=== PATIENT | female | born 1975 | race Hispanic/Latino ===

== ENCOUNTER 2018-02-14 14:13 | Emergency (ER) | payer BC ==
[2018-02-14] MEDS ORDERED: KETOROLAC 30 MG/ML INJ ONE (16:39)
[2018-02-14] MEDS ORDERED: NA CHLORIDE 0.9% 1,000 ML ONE (16:39)
[2018-02-14] MEDS ORDERED: FENTANYL CITR 100 MCG/2 ML ONE ×2 (16:39→18:26)
[2018-02-14] MEDS ORDERED: ONDANSETRON 4 MG/2 ML VIAL ONE (16:39)
[2018-02-14 17:10] LABS: Absolute Lymphocytes (CBC) 4.8 K/uL (0.7-4.9); Absolute Monocytes 0.4 K/uL (0.1-1.3); Absolute Neutrophil 5.9 K/uL (1.8-8.0); Basophils % 0.5 % (0-1.3); Eosinophils % 1.4 % (0-4.4); Hematocrit 43.6 % (36.0-45.0); Lymphocytes % 42.1 % (15.3-44.8); MCH 30.7 pg (27.0-35.0); MCV 90.4 fL (80-100); MPV 9.1 fL (7.6-11.3); Monocytes % 3.9 % (3.3-12.3); RBC Red Blood Cell Count 4.83 M/uL (3.86-4.86)
[2018-02-14 17:21] LABS: Bicarbonate 27 mEq/L (21-31); Glucose Level 82 mg/dL (65-120); Potassium 3.5 mEq/L (3.6-5.0); Sodium Level 138 mEq/L (135-145)
[2018-02-14 17:24] LABS: ALT/SGPT 23 IU/L (10-60); AST/SGOT 18 IU/L (10-42); Albumin 4.2 g/dL (3.2-5.5); Alkaline Phosphatase 64 IU/L (42-121); BUN Blood Urea Nitrogen 12 mg/dL (6-20); Bilirubin Total 1.2 mg/dL (0.3-1.2); Protein, Total 7.4 g/dL (6.0-8.3)
[2018-02-14 17:41] LABS: Urine Blood NEGATIVE (NEG); Urine Glucose NEGATIVE (NEG); Urine Protein NEGATIVE (NEG); Urine pH 5.5 (5.0-7.0)
--- NOTE | 2018-02-14 18:17 | RAD REPORT ---
EXAM DESCRIPTION: MRI - Brain Wo Cont - 02/14/2018 5:49 pm CLINICAL HISTORY: Headache, weakness, slurred speech COMPARISON: None. TECHNIQUE: Sagittal T1-weighted images were obtained along with axial PD, heavily T2-weighted and T2 -FLAIR images. Axial DWI and ADC mapping sequences were also obtained along with coronal heavily T2-w eighted images. FINDINGS: No intracranial hemorrhage, mass or acute infarction. There is no edema or shift of midlin e structures. Patient has a normal variant arachnoid cyst in the anterior aspect left middle cranial fossa. Parks-matter/white matter junction is preserved. Signal voids are seen as a normal finding in t he major intracranial vessels. Ventricles are normal. No globe or orbital content acute finding. No tonsillar ectopia present. No sella or supra sella abno rmality seen. Mastoid air cells and paranasal sinuses are clear. IMPRESSION: Negative non-contrast MRI of the Brain for acute or significant finding.
--- NOTE | 2018-02-14 18:22 | RAD REPORT ---
EXAM DESCRIPTION: CT - CTHCSPWOC - 02/14/2018 6:01 pm COMPARISON: None. TECHNIQUE: Axial 5 mm thick images of the head were obtained. Axial 2 mm thick images of the cervic al spine were obtained with sagittal and coronal reconstruction images generated and reviewed. All CT scans are performed using dose optimization technique as appropriate and may include automated exposure control or mA/KV adjustment according to patient size. FINDINGS: No intracranial hemorrhage, mass, edema or acute intracranial finding. No suspicion for acute infarct ion. No extra-axial fluid collections. Mastoid air cells and paranasal sinuses are clear. No globe or orbit abnormality seen. A 6 millimeter calcification is present in the left frontal lobe parenchyma likely from old infection or injury. There is a similar calcification in the medial anterior left fro ntal lobe either in brain parenchyma or along the falx. Neither is acutely clinically significant. No ventricle abnormality. Cervical bodies are normal in height. No subluxation abnormality. There is reversal of the usual cerv ical lordosis that could be positioning artifact or muscle spasm. Facet joint alignment is normal. No disk space narrowing. No fracture or acute bony abnormality. No paraspinal mass or hematoma. A few small nonspecific lymph nodes in the neck soft tissues. No susp icious soft tissue finding. IMPRESSION: Negative CT head examination for acute or significant finding. No fracture or acute cervical spine finding. The cervical kyphotic curvature could be due to muscle s pasm or a positioning artifact.
--- NOTE | 2018-02-14 18:48 | ER ---
Nurse's Notes [facility] Name: Kayla Tripp Age: 42 yrs Sex: Female : 1975 Arrival Date: 02/14/2018 Time: 14:18 Bed 30 Private MD: Diagnosis: Headache;Hypokalemia Presentation: 02/14 14:34 Presenting complaint: Patient states: Headache and neck pain x 3 days. Denies hb fever/injury. Transition of care: patient was not received from another setting of care. Onset of symptoms was February 11, 2018. Care prior to arrival: None. 14:34 Acuity: DYLLAN 3 hb 14:34 Method Of Arrival: Wheelchair hb Historical: - Allergies: 14:35 No Known Allergies; hb - Immunization history:: Adult Immunizations. - Family history:: not pertinent. - Social history:: Smoking status: Patient/guardian denies using tobacco. Screenin:03 Abuse screen: Denies threats or abuse. Denies injuries from another. Nutritional aj screening: No deficits noted. Tuberculosis screening: No symptoms or risk factors identified. Fall Risk None identified. Assessment: 17:03 General: Appears in no apparent distress. comfortable, Behavior is calm, cooperative, aj appropriate for age. Pain: Complains of pain in back of neck, face and scalp. Neuro: Level of Consciousness is awake, alert, obeys commands, Oriented to person, place, time, situation. Cardiovascular: Denies chest pain. Respiratory: Airway is patent Respiratory effort is even, unlabored, Respiratory pattern is regular, symmetrical. GI: Abdomen is flat. Derm: Skin is intact, is healthy with good turgor, Skin is pink, warm \T\ dry. normal. 19:23 Reassessment: Patient appears in no apparent distress at this time. No changes from aj previously documented assessment. Patient and/or family updated on plan of care and expected duration. Pain level reassessed. Patient is alert, oriented x 3, equal unlabored respirations, skin warm/dry/pink. Patient states feeling better. Patient states symptoms have improved. Vital Signs: 14:35 BP 122 / 87; Pulse 84; Resp 16; Temp 98; Pulse Ox 100% on R/A; Pain 9/10; hb 17:03 BP 130 / 79; Pulse 64; Resp 18; Pulse Ox 100% on R/A; aj 17:31 BP 118 / 61; Pulse 63; Resp 17; Pulse Ox 100% on R/A; aj 18:39 BP 135 / 93; Pulse 61; Resp 17; Pulse Ox 100% on R/A; aj 19:23 BP 116 / 72; Pulse 69; Resp 18; Pulse Ox 99% on R/A; aj ED Course: 14:18 Patient arrived in ED. mr 14:35 Triage completed. hb 14:35 Arm band placed on left wrist. hb 16:10 Jay Ramsay MD is Attending Physician. gogo 16:13 Natalya Turner, RN is Primary Nurse. aj 17:03 Patient has correct armband on for positive identification. aj 17:03 Inserted saline lock: 20 gauge in right antecubital area, using aseptic technique. aj Blood collected. 17:27 US Carotid Artery Bilateral In Process Unspecified. EDMS 17:30 Patient moved to MRI via wheelchair. ka 17:41 Brain Wo Cont MRI In Process Unspecified. EDMS 17:48 MRI completed. Patient tolerated well. Patient moved back from MRI. ka 17:[address] via wheelchair. nj 18:01 CT Head C Spine In Process Unspecified. EDMS 18:04 Patient moved back from CT. nj 18:47 Grupo Allen MD is Referral Physician. gogo 19:23 No provider procedures requiring assistance completed. IV discontinued, intact, aj bleeding controlled, No redness/swelling at site. Pressure dressing applied. Administered Medications: 16:42 CANCELLED (Duplicate Order): Compazine Suppository 25 mg [place] once gogo 17:02 Drug: TORadol 30 mg Route: IVP; Site: right antecubital; aj 19:01 Follow up: Response: Pain is decreased aj 17:02 Drug: Zofran 4 mg Route: IVP; Site: right antecubital; aj 19:01 Follow up: Response: Nausea is decreased aj 17:02 Drug: fentaNYL (PF) 25 mcg Route: IVP; Site: right antecubital; aj 19:01 Follow up: Response: Pain is decreased aj 17:03 Drug: NS 0.9% 1000 ml Route: IV; Rate: 1 bolus; Site: right antecubital; aj 18:28 Drug: fentaNYL (PF) 25 mcg Route: IVP; Site: right antecubital; aa5 19:00 Follow up: Response: Pain is decreased aj 18:59 Not Given (order changed): Potassium Chloride 20 mEq PO once aj 19:00 Drug: Potassium Effervescent Tablet 25 mEq Route: PO; 19:25 Follow up: Response: No adverse reaction aj Outcome: 18:47 Discharge ordered by . gogo 19:23 Discharged to home ambulatory. 19:23 Condition: good 19:23 Discharge instructions given to patient, Instructed on discharge instructions, follow up and referral plans. medication usage, Demonstrated understanding of instructions, follow-up care, medications, Prescriptions given X 2. 19:25 Patient left the ED. aj Signatures: Dispatcher [employer] EDMS Natalya Turner RN RN aj Anderson, Corey, MD MD cha Rivera, Maria mr Calderon, Audri, RN RN aa5 Viky Crowder Heather RN RN Martin Lo
--- NOTE | 2018-02-14 18:48 | EDPHYS ---
Physician Documentation [facility] Name: Kayla Tripp Age: 42 yrs Sex: Female : 1975 Arrival Date: 02/14/2018 Time: 14:18 Bed 30 Private MD: ED Physician Jay Ramsay HPI: 02/14 16:31 This 42 yrs old Female presents to ER via Wheelchair with complaints of gogo Headache > 24hrs Old. 16:31 The patient complains of pain to the forehead, left side of the back of head, left gogo occipital area, left base of the skull, right side of the back of head, right occipital area and right base of the skull. The patient describes the headache as aching. Onset: The symptoms/episode began/occurred 1 day(s) ago. Associated signs and symptoms: The patient has no apparent associated signs or symptoms. Severity of symptoms: At its worst the pain was mild, in the emergency department the pain is unchanged. Headache History: Denies prior headaches. The symptoms are alleviated by nothing. the symptoms are aggravated by nothing. The patient has not experienced similar symptoms in the past. Historical: - Allergies: 14:35 No Known Allergies; hb - Immunization history:: Adult Immunizations. - Family history:: not pertinent. - Social history:: Smoking status: Patient/guardian denies using tobacco. ROS: 16:31 Constitutional: Negative for fever, chills, and weight loss, Eyes: Negative for injury, gogo pain, redness, and discharge, ENT: Negative for injury, pain, and discharge, Neck: Negative for injury, pain, and swelling, Cardiovascular: Negative for chest pain, palpitations, and edema, Respiratory: Negative for shortness of breath, cough, wheezing, and pleuritic chest pain, Abdomen/GI: Negative for abdominal pain, nausea, vomiting, diarrhea, and constipation, Back: Negative for injury and pain, : Negative for injury, bleeding, discharge, and swelling, MS/Extremity: Negative for injury and deformity, Skin: Negative for injury, rash, and discoloration, Neuro: Negative for headache, weakness, numbness, tingling, and seizure, Psych: Negative for depression, anxiety, suicide ideation, homicidal ideation, and hallucinations, Allergy/Immunology: Negative for hives, rash, and allergies, Endocrine: Negative for neck swelling, polydipsia, polyuria, polyphagia, and marked weight changes, Hematologic/Lymphatic: Negative for swollen nodes, abnormal bleeding, and unusual bruising. 16:31 Neck: Negative for injury or acute deformity, pain with movement. Exam: 16:31 Constitutional: This is a well developed, well nourished patient who is awake, alert, gogo and in no acute distress. Head/Face: Normocephalic, atraumatic. Eyes: Pupils equal round and reactive to light, extra-ocular motions intact. Lids and lashes normal. Conjunctiva and sclera are non-icteric and not injected. Cornea within normal limits. Periorbital areas with no swelling, redness, or edema. ENT: Nares patent. No nasal discharge, no septal abnormalities noted. Tympanic membranes are normal and external auditory canals are clear. Oropharynx with no redness, swelling, or masses, exudates, or evidence of obstruction, uvula midline. Mucous membranes moist. Neck: Trachea midline, no thyromegaly or masses palpated, and no cervical lymphadenopathy. Supple, full range of motion without nuchal rigidity, or vertebral point tenderness. No Meningismus. Chest/axilla: Normal chest wall appearance and motion. Nontender with no deformity. No lesions are appreciated. Cardiovascular: Regular rate and rhythm with a normal S1 and S2. No gallops, murmurs, or rubs. Normal PMI, no JVD. No pulse deficits. Respiratory: Lungs have equal breath sounds bilaterally, clear to auscultation and percussion. No rales, rhonchi or wheezes noted. No increased work of breathing, no retractions or nasal flaring. Abdomen/GI: Soft, non-tender, with normal bowel sounds. No distension or tympany. No guarding or rebound. No evidence of tenderness throughout. Back: No spinal tenderness. No costovertebral tenderness. Full range of motion. Skin: Warm, dry with normal turgor. Normal color with no rashes, no lesions, and no evidence of cellulitis. MS/ Extremity: Pulses equal, no cyanosis. Neurovascular intact. Full, normal range of motion. Neuro: Awake and alert, GCS 15, oriented to person, place, time, and situation. Cranial nerves II-XII grossly intact. Motor strength 5/5 in all extremities. Sensory grossly intact. Cerebellar exam normal. Normal gait. Psych: Awake, alert, with orientation to person, place and time. Behavior, mood, and affect are within normal limits. 16:31 Neck: External neck: is normal, no acute changes, ROM/movement: is normal, no acute changes, Meningeal signs: are not present, Kernig's sign is negative, Brudzinski's sign is negative. Vital Signs: 14:35 BP 122 / 87; Pulse 84; Resp 16; Temp 98; Pulse Ox 100% on R/A; Pain 9/10; hb 17:03 BP 130 / 79; Pulse 64; Resp 18; Pulse Ox 100% on R/A; aj 17:31 BP 118 / 61; Pulse 63; Resp 17; Pulse Ox 100% on R/A; aj 18:39 BP 135 / 93; Pulse 61; Resp 17; Pulse Ox 100% on R/A; aj 19:23 BP 116 / 72; Pulse 69; Resp 18; Pulse Ox 99% on R/A; aj MDM: 16:10 [facility] 16:32 Data reviewed: vital signs, nurses notes, lab test result(s), radiologic studies, CT gogo scan. 02/14 16:28 Order name: CBC with Diff; Complete Time: 17:38 [facility] 02/14 16:43 Order name: Comprehensive Metabolic Panel; Complete Time: 17:38 [facility] 02/14 16:28 Order name: Brain Wo Cont MRI; Complete Time: 18:47 [facility] 02/14 16:56 Order name: Urine Culture [facility] 02/14 17:29 Order name: Urine Dipstick--Ancillary (enter results); Complete Time: 17:55 [facility] 02/14 17:29 Order name: Urine --Ancillary (enter results); Complete Time: 17:55 [facility] 02/14 16:49 Order name: CT Head C Spine; Complete Time: 18:47 [facility] 02/14 16:49 Order name: US Carotid Artery Bilateral [facility] 02/14 16:28 Order name: Urine Dipstick-Ancillary (obtain specimen); Complete Time: 17:03 [facility] Administered Medications: 16:42 CANCELLED (Duplicate Order): Compazine Suppository 25 mg [place] once [facility] 17:02 Drug: TORadol 30 mg Route: IVP; Site: right antecubital; aj 19:01 Follow up: Response: Pain is decreased aj 17:02 Drug: Zofran 4 mg Route: IVP; Site: right antecubital; aj 19:01 Follow up: Response: Nausea is decreased aj 17:02 Drug: fentaNYL (PF) 25 mcg Route: IVP; Site: right antecubital; aj 19:01 Follow up: Response: Pain is decreased aj 17:03 Drug: NS 0.9% 1000 ml Route: IV; Rate: 1 bolus; Site: right antecubital; aj 18:28 Drug: fentaNYL (PF) 25 mcg Route: IVP; Site: right antecubital; aa5 19:00 Follow up: Response: Pain is decreased aj 18:59 Not Given (order changed): Potassium Chloride 20 mEq PO once aj 19:00 Drug: Potassium Effervescent Tablet 25 mEq Route: PO; aj 19:25 Follow up: Response: No adverse reaction aj Disposition: 02/14/18 18:47 Discharged to Home. Impression: Headache, Hypokalemia. - Condition is Stable. - Discharge Instructions: Potassium Content of Foods, General Headache Without Cause, General Headache Without Cause, [id number], Hypokalemia. - Prescriptions for Fioricet with Codeine 50- 325-40-30 mg Oral capsule - take 1 capsule by ORAL route every 4 hours as needed not to exceed 6 capsules per 24hrs; 24 capsule. Zofran 4 mg Oral Tablet - take 1 tablet by ORAL route every 12 hours As needed; 20 tablet. - Medication Reconciliation Form, Thank You Letter, Antibiotic Education, Prescription Opioid Use form. - Follow up: Private Physician; When: 2 - 3 days; Reason: Recheck today's complaints, Continuance of care, Re-evaluation by your physician. Follow up: Grupo Allen; When: 2 - 3 days; Reason: Recheck today's complaints, Continuance of care, Re-evaluation by your physician. - Problem is new. - Symptoms have improved. Signatures: Dispatcher [employer] Natalya Figueredo RN RN aj Anderson, Corey, MD MD cha Therrien, Shelly, MECHANICAL MAINTENANCE ENGINEER-C MECHANICAL MAINTENANCE ENGINEER-Csnw Eugenia Walters RN RN aa5 Sol Copeland RN RN Corrections: (The following items were deleted from the chart) 16:42 16:28 Compazine Suppository 25 mg OK once ordered. gogo bowens 19:25 18:47 02/14/2018 18:47 Discharged to Home. Impression: Headache; Hypokalemia. Condition aj is Stable. Discharge Instructions: General Headache Without Cause, General Headache Without Cause, [id number], Potassium Content of Foods, Hypokalemia. Prescriptions for Fioricet with Codeine [id number] mg Oral capsule - take 1 capsule by ORAL route every 4 hours as needed not to exceed 6 capsules per 24hrs; 24 capsule, Zofran 4 mg Oral Tablet - take 1 tablet by ORAL route every 12 hours As needed; 20 tablet. and Forms are Medication Reconciliation Form, Thank You Letter, Antibiotic Education, Prescription Opioid Use. Follow up: Private Physician; When: 2 - 3 days; Reason: Recheck today's complaints, Continuance of care, Re-evaluation by your physician. Follow up: Grupo Allen; When: 2 - 3 days; Reason: Recheck today's complaints, Continuance of care, Re-evaluation by your physician. Problem is new. Symptoms have improved. gogo
[2018-02-14] MEDS ORDERED: POTASSIUM 25 MEQ EFFERV TAB ONE (18:56)
--- NOTE | 2018-02-14 22:51 | RAD REPORT ---
EXAM DESCRIPTION: VASCarotid Artery Bilateral02/14/2018 5:34 pm CLINICAL HISTORY: Slurred speech COMPARISON: None FINDINGS: The velocity of the right internal carotid artery equals 126 cm/sec. The right ICA/CCA rat io 2.2 The velocity of the left internal carotid artery [id number] cm/sec. The left ICA/CCA ratio 1.0 Moderate plaque is present within right internal carotid artery. The vertebral arteries demonstrate antegrade flow IMPRESSION: Moderate plaque within the right internal carotid artery which appears to result in an a pproximately 45-50% stenosis
== END 2018-02-14 19:25 | disposition home or self-care (01) ==
LOC: ER 14:13
DX: E87.6 Hypokalemia (principal)
CPT/HCPCS: 36415; 70450; 70551; 72125; 80053; 81003; 81025; 85025; 87086; 87088; 93880; 96374; 96375; 99284; J2405; J3010; J7030

== ENCOUNTER 2018-05-16 15:38 | Emergency (ER) | payer BC ==
--- NOTE | 2018-05-16 16:16 | ER ---
Nurse's Notes [facility] Name: Kayla Tripp Age: 42 yrs Sex: Female : 1975 Arrival Date: 05/16/2018 Time: 15:41 Bed 9 Private MD: Diagnosis: Low back pain Presentation: 05/16 16:03 Presenting complaint: Patient states: mid lower back pain X 3 days, unknown if she iw injured it while cleaning. Transition of care: patient was not received from another setting of care. Onset of symptoms was May 13, 2018. Risk Assessment: Do you want to hurt yourself or someone else? Patient reports no desire to harm self or others. Initial Sepsis Screen: Does the patient meet any 2 criteria? No. Patient's initial sepsis screen is negative. Does the patient have a suspected source of infection? No. Patient's initial sepsis screen is negative. Care prior to arrival: None. 16:03 Method Of Arrival: Ambulatory iw 16:03 Acuity: DYLLAN 4 iw Triage Assessment: 16:30 General: Appears in no apparent distress. iw 16:45 General: Behavior is calm, appropriate for age. iw 16:45 Pain: Complains of pain in lumbar area. Musculoskeletal: Circulation, motion, and iw sensation intact. SUPERVISOR TESTING: 16:06 LMP 04/30/2018 iw Historical: - Allergies: 16:07 NKA; iw - Home Meds: 16:07 None [Active]; iw - PMHx: 16:07 None; iw - PSHx: 16:07 Appendectomy; iw - Immunization history:: Adult Immunizations up to date. - Social history:: Smoking status: Patient uses tobacco products, smokes one-half pack cigarettes per day. - Ebola Screening: : Patient negative for fever greater than or equal to 101.5 degrees Fahrenheit, and additional compatible Ebola Virus Disease symptoms Patient denies exposure to infectious person Patient denies travel to an Ebola-affected area in the 21 days before illness onset No symptoms or risks identified at this time. Screenin:44 Abuse screen: Denies threats or abuse. Denies injuries from another. Nutritional iw screening: No deficits noted. Tuberculosis screening: No symptoms or risk factors identified. Fall Risk None identified. Assessment: 16:45 Neuro: Level of Consciousness is awake, alert, obeys commands. iw Vital Signs: 16:06 BP 129 / 81; Pulse 79; Resp 16; Temp 98.2; Pulse Ox 98% on R/A; Weight 57.61 kg; Height iw 5 ft. 3 in. (160.02 cm); Pain 10/10; 16:06 Body Mass Index 22.50 (57.61 kg, 160.02 cm) iw ED Course: 15:41 Patient arrived in ED. tw3 16:06 Triage completed. iw 16:06 Arm band placed on. iw 16:07 Nancy Garcia RN is Primary Nurse. iw 16:08 Andria Chadwick FNP-C is PHCP. kb 16:08 Jay Ramsay MD is Attending Physician. kb 16:45 Patient has correct armband on for positive identification. iw 16:45 No provider procedures requiring assistance completed. Patient did not have IV access iw during this emergency room visit. Administered Medications: 16:26 Drug: TORadol 60 mg Route: IM; Site: right gluteus; iw Outcome: 16:15 Discharge ordered by MD. kb 16:44 Discharged to home ambulatory. iw 16:44 Condition: good 16:44 Discharge instructions given to patient, Instructed on discharge instructions, follow up and referral plans. medication usage, Demonstrated understanding of instructions, follow-up care, medications, Prescriptions given X 2. 16:45 Patient left the ED. iw Signatures: Andria Chadwick FNP-C FNP-Nancy Warner RN RN iw Phillip, Kathy tw3 Corrections: (The following items were deleted from the chart) 16:08 16:06 Resp 16bpm; Pulse Ox 98% RA; Temp 98.2F; 57.61 kg; Height 5 ft. 3 in.; BMI: 22.5; iw Pain 10/10; iw
--- NOTE | 2018-05-16 16:16 | EDPHYS ---
Physician Documentation [facility] Name: Kayla Tripp Age: 42 yrs Sex: Female : 1975 Arrival Date: 05/16/2018 Time: 15:41 Bed 9 Private MD: ED Physician Jay Ramsay HPI: 05/16 16:49 This 42 yrs old Female presents to ER via Ambulatory with complaints of Back kb Pain. 16:49 The patient presents with pain that is chronic. The symptoms are located in the low kb back. Onset: The symptoms/episode began/occurred 4 day(s) ago. The pain does not radiate. Associated signs and symptoms: The patient has no apparent associated signs or symptoms. The problem was sustained from a chronic condition, when lifting. Modifying factors: The patient symptoms are alleviated by nothing, the patient symptoms are aggravated by any movement. Severity of symptoms: At their worst the symptoms were moderate, in the emergency department the symptoms are unchanged. The patient has experienced similar episodes in the past. The patient has not recently seen a physician. Pt states she has low back pain due to scoliosis, but it has been worse over the past 4 days. States she was cleaning and lifting before it started. . 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 - Social history:: Smoking status: Patient uses tobacco products, smokes one-half pack cigarettes per day. - Ebola Screening: : Patient negative for fever greater than or equal to 101.5 degrees Fahrenheit, and additional compatible Ebola Virus Disease symptoms Patient denies exposure to infectious person Patient denies travel to an Ebola-affected area in the 21 days before illness onset No symptoms or risks identified at this time. ROS: 16:47 Constitutional: Negative for fever, chills, and weight loss, Cardiovascular: Negative kb for chest pain, palpitations, and edema, Respiratory: Negative for shortness of breath, cough, wheezing, and pleuritic chest pain, Abdomen/GI: Negative for abdominal pain, nausea, vomiting, diarrhea, and constipation, : Negative for injury, bleeding, discharge, and swelling, MS/Extremity: Negative for injury and deformity, Skin: Negative for injury, rash, and discoloration, Neuro: Negative for headache, weakness, numbness, tingling, and seizure. 16:47 Back: Positive for pain at rest, pain with movement, of the lumbar area, Negative for injury or acute deformity, decreased range of motion, radiated pain. Exam: 16:47 Constitutional: This is a well developed, well nourished patient who is awake, alert, kb and in no acute distress. Head/Face: Normocephalic, atraumatic. Chest/axilla: Normal chest wall appearance and motion. Nontender with no deformity. No lesions are appreciated. Cardiovascular: Regular rate and rhythm with a normal S1 and S2. No gallops, murmurs, or rubs. Normal PMI, no JVD. No pulse deficits. Respiratory: Lungs have equal breath sounds bilaterally, clear to auscultation and percussion. No rales, rhonchi or wheezes noted. No increased work of breathing, no retractions or nasal flaring. Abdomen/GI: Soft, non-tender, with normal bowel sounds. No distension or tympany. No guarding or rebound. No evidence of tenderness throughout. Back: No spinal tenderness. No costovertebral tenderness. Full range of motion. Skin: Warm, dry with normal turgor. Normal color with no rashes, no lesions, and no evidence of cellulitis. MS/ Extremity: Pulses equal, no cyanosis. Neurovascular intact. Full, normal range of motion. Neuro: Awake and alert, GCS 15, oriented to person, place, time, and situation. Cranial nerves II-XII grossly intact. Motor strength 5/5 in all extremities. Sensory grossly intact. Cerebellar exam normal. Normal gait. 16:51 Neuro: Exam negative for acute changes. kb Vital Signs: 16:06 BP 129 / 81; Pulse 79; Resp 16; Temp 98.2; Pulse Ox 98% on R/A; Weight 57.61 kg; Height iw 5 ft. 3 in. (160.02 cm); Pain 10/10; 16:06 Body Mass Index 22.50 (57.61 kg, 160.02 cm) iw MDM: 16:08 Patient medically screened. kb 16:48 Data reviewed: vital signs, nurses notes. Data interpreted: Pulse oximetry: on room air kb is 98 %. Interpretation: normal. Counseling: I had a detailed discussion with the patient and/or guardian regarding: the historical points, exam findings, and any diagnostic results supporting the discharge/admit diagnosis, the need for outpatient follow up, a family practitioner, to return to the emergency department if symptoms worsen or persist or if there are any questions or concerns that arise at home. Administered Medications: 16:26 Drug: TORadol 60 mg Route: IM; Site: right gluteus; iw Disposition: 05/17 11:35 Co-signature as Attending Physician, Jay Ramsay MD I agree with the assessment and gogo plan of care. Disposition: 05/16/18 16:15 Discharged to Home. Impression: Low back pain. - Condition is Stable. - Discharge Instructions: Back Pain, Adult, [id number]. - Prescriptions for Cyclobenzaprine 10 mg Oral Tablet - take 1 tablet by ORAL route every 8 hours As needed; 21 tablet. Diclofenac Sodium 75 mg Oral Tablet Sustained Release - take 1 tablet by ORAL route 2 times per day; 30 tablet. - Medication Reconciliation Form, Thank You Letter, Antibiotic Education, Prescription Opioid Use form. - Follow up: Emergency Department; When: As needed; Reason: Worsening of condition. Follow up: Private Physician; When: 2 - 3 days; Reason: Recheck today's complaints, Continuance of care, Re-evaluation by your physician. Signatures: Andria Chadwick, PUBLIC RELATIONS STUDIES DIRECTOR-C PUBLIC RELATIONS STUDIES DIRECTOR-Ckb Jay Ramsay MD MD cha Williams, Irene, RN RN iw Corrections: (The following items were deleted from the chart) 05/16 16:45 16:15 05/16/2018 16:15 Discharged to Home. Impression: Low back pain. Condition is iw Stable. Forms are Medication Reconciliation Form, Thank You Letter, Antibiotic Education, Prescription Opioid Use. Follow up: Emergency Department; When: As needed; Reason: Worsening of condition. Follow up: Private Physician; When: 2 - 3 days; Reason: Recheck today's complaints, Continuance of care, Re-evaluation by your physician. kb
[2018-05-16] MEDS ORDERED: KETOROLAC 30 MG/ML INJ ONE (16:27)
== END 2018-05-16 16:45 | disposition home or self-care (01) ==
LOC: ER 15:38
DX: M54.5 Low back pain (principal); F17.210 Nicotine dependence, cigarettes, uncomplicated
CPT/HCPCS: 96372; 99283